=== PATIENT | male | born 1980 | race Hispanic/Latino ===

== ENCOUNTER 2021-10-23 12:42 | Emergency (ER) | payer SELFPAY ==
[2021-10-23] MEDS ORDERED: Ketorolac 30 MG/ML SDV IM ONE (13:39)
== END 2021-10-23 15:17 | disposition home or self-care (01) ==
LOC: DL.ED 12:42
DX: M67.843 Other specified disorders of tendon, right hand (principal)
CPT/HCPCS: 36415; 73120-RT; 85025; 85651; 86140; 96372; 99282; 99283; J1885